=== PATIENT | female | born 1950 | race Caucasian/White ===

== ENCOUNTER → 2021-06-10 | Outpatient (CLI) | payer MEDICARE, OTHER ==
--- NOTE | 2021-06-10 14:31 | Diagnostic Imaging Report ---
INDICATION: Preop total knee replacement. COMPARISON: None. FINDINGS: Frontal and lateral views of the chest demonstrate normal heart size and pulmonary vascularity. The lungs are clear. There are no signs of infiltrate, pleural effusions or pneumothoraces. The visualized osseous structures show no acute abnormalities. IMPRESSION: 1. No acute process. No signs of infiltrates, effusions or pneumothoraces. Dictated by: Dictated on workstation # [id number]
== END ==
LOC: CARD 13:30
PROVIDERS: ATTEND Registered Nurse
DX: Z01.810 Encounter for preprocedural cardiovascular examination (principal); Z01.811 Encounter for preprocedural respiratory examination; Z96.651 Presence of right artificial knee joint; M25.561 Pain in right knee
CPT/HCPCS: 71046; 93005

== ENCOUNTER → 2021-07-04 | Outpatient (CLI) | payer MEDICARE, OTHER ==
--- NOTE | 2021-07-04 13:21 | Diagnostic Imaging Report ---
PROCEDURE: CT right lower extremity without contrast. TECHNIQUE: Axially acquired CT was obtained through the right lower extremity without intravenous contrast. Coronal and sagittal reformations were also performed. Auto Exposure Controls were utilized during the CT exam to meet ALARA standards for radiation dose reduction. INDICATION: Right knee pain. COMPARISON: None FINDINGS: Sagittal and coronal reformats were not obtained, but there is severe endstage degenerative change in the medial and lateral compartments of the knee, with articular surface remodeling in the lateral compartment, seen on the field placement director image. There is severe degenerative change in the patellofemoral compartment and there is a large knee joint effusion. There is mild generalized muscular atrophy. There are mild degenerative changes in the right hip. No acute osseous abnormality is seen in the right hip or right ankle. IMPRESSION: 1. Severe tricompartmental degenerative changes in the right knee. 2. Large right knee joint effusion. Dictated by: Dictated on workstation # [id number]
== END ==
LOC: RAD 11:15
PROVIDERS: ATTEND Orthopaedic Surgery
DX: M17.11 Unilateral primary osteoarthritis, right knee (principal); Z96.651 Presence of right artificial knee joint
CPT/HCPCS: 73700

== ENCOUNTER 2021-08-04 05:40 | Outpatient (RCR) | payer MEDICARE, OTHER ==
[2021-07-30 15:09] LABS: CLARITY,URINE CLEAR; COLOR,URINE YELLOW; GLUCOSE, URINE (UA) NEGATIVE (NEGATIVE); KETONES,URINE TRACE (NEGATIVE); LEUKOCYTE ESTERASE ,URINE NEGATIVE (NEGATIVE); NITRITE,URINE NEGATIVE (NEGATIVE); PH,URINE 5.5 (5-9); PROTEIN,URINE NEGATIVE (NEGATIVE)
[2021-07-30 15:12] LABS: BASOPHILS # (AUTO) 0.1 10^3/uL (0.0-0.1); BASOPHILS % (AUTO) 1 % (0-10); EOSINOPHILS # (AUTO) 0.1 10^3/uL (0.0-0.3); EOSINOPHILS % (AUTO) 1 % (0-10); HEMATOCRIT 45 % (35-52); HEMOGLOBIN 14.6 g/dL (11.5-16.0); LYMPHOCYTES # (AUTO) 2.2 10^3/uL (1.0-4.0); LYMPHOCYTES % (AUTO) 32 % (12-44); MEAN CORPUSCULAR HEMOGLOBIN 33 pg (25-34); MEAN CORPUSCULAR HGB CONC 32 g/dL (32-36); MEAN CORPUSCULAR VOLUME 101 fL (80-99); MONOCYTES # (AUTO) 0.7 10^3/uL (0.0-1.0); MONOCYTES % (AUTO) 10 % (0-12); NEUTROPHILS # (AUTO) 3.8 10^3/uL (1.8-7.8); NEUTROPHILS % (AUTO) 56 % (42-75); PLATELET COUNT 228 10^3/uL (130-400); WHITE BLOOD COUNT 6.7 10^3/uL (4.3-11.0)
[2021-07-30 15:18] LABS: INR 0.9 (0.8-1.4); PROTHROMBIN TIME PATIENT 12.8 SEC (12.2-14.7)
[2021-07-30 15:21] LABS: POTASSIUM 4.3 MMOL/L (3.6-5.0)
[2021-07-30 15:22] LABS: CALCIUM 9.3 MG/DL (8.5-10.1)
[2021-07-30 15:23] LABS: TOTAL PROTEIN 6.8 GM/DL (6.4-8.2)
[2021-07-30 15:25] LABS: BILIRUBIN,TOTAL 0.3 MG/DL (0.1-1.0)
[2021-07-30 15:27] LABS: CREATININE SERUM 0.89 MG/DL (0.60-1.30)
[2021-07-30 15:30] LABS: ERYTHROCYTE SEDIMENTATION RATE 1 MM/HR (0-30)
[2021-07-30 15:35] LABS: AMORPHOUS SEDIMENT,UR MOD AMOR URATES /LPF; BACTERIA,URINE NEGATIVE /HPF; BILIRUBIN,URINE NEGATIVE (NEGATIVE); RBC,URINE 0-2 /HPF; WBC,URINE 0-2 /HPF
[~2021-08-04] VITALS: Ht 170.2 cm; Wt 78.4 kg
[~2021-08-04 05:40] MED LIST: ALLO100T PO; ALPR0.5T7 PO; BACL20TA PO; BISO-2 PO; DIVA-74 PO; GABA300C PO; LEVO125C4 PO; MELO15TA39 PO; NF-ESOM40C PO; ONDN4T PO; SIMV20TA26 PO; SUMA100T3 PO; TRAM50TA3 PO; TRZ50T PO
== END 2021-08-04 12:49 | disposition home or self-care (01) ==
LOC: PREOP 05:40
PROVIDERS: ATTEND Orthopaedic Surgery
DX: Z01.812 Encounter for preprocedural laboratory examination (principal); M17.11 Unilateral primary osteoarthritis, right knee; R53.83 Other fatigue; Z11.2 Encounter for screening for other bacterial diseases
CPT/HCPCS: 36415; 80053; 81000; 85025; 85610; 85652; 86850; 86900; 86901; 87081

== ENCOUNTER → 2022-11-03 | Outpatient (CLI) | payer MEDICARE, OTHER ==
[2022-11-03 09:40] LABS: BASOPHILS % (AUTO) 0 % (0-10); EOSINOPHILS # (AUTO) 0.1 10^3/uL (0.0-0.3); EOSINOPHILS % (AUTO) 1 % (0-10); HEMATOCRIT 43 % (35-52); HEMOGLOBIN 13.8 g/dL (11.5-16.0); LYMPHOCYTES % (AUTO) 19 % (12-44); MEAN CORPUSCULAR HEMOGLOBIN 32 pg (25-34); MEAN CORPUSCULAR HGB CONC 32 g/dL (32-36); MEAN CORPUSCULAR VOLUME 99 fL (80-99); MEAN PLATELET VOLUME 9.8 fL (9.0-12.2); MONOCYTES # (AUTO) 0.6 10^3/uL (0.0-1.0); MONOCYTES % (AUTO) 11 % (0-12); NEUTROPHILS # (AUTO) 3.5 10^3/uL (1.8-7.8); NEUTROPHILS % (AUTO) 68 % (42-75); PLATELET COUNT 238 10^3/uL (130-400); WHITE BLOOD COUNT 5.1 10^3/uL (4.3-11.0)
[2022-11-03 09:48] LABS: CALCIUM 9.5 MG/DL (8.5-10.1); CREATININE SERUM 0.8 MG/DL (0.60-1.30); POTASSIUM 4.2 MMOL/L (3.6-5.0)
--- NOTE | 2022-11-03 13:02 | Diagnostic Imaging Report ---
INDICATION: Preoperative evaluation. TECHNIQUE: Two view chest 9:42 AM CORRELATION STUDY: 06/10/2021 FINDINGS: The heart size, mediastinal configuration and pulmonary vasculature are within normal limits. The lungs are clear with no consolidating infiltrate. There is no significant pleural effusion or pneumothorax. Visualized osseous structures are unremarkable. IMPRESSION: 1. Negative for acute abnormality of the chest. Dictated by: Dictated on workstation # [id number]
== END ==
LOC: CARD 08:47
PROVIDERS: ATTEND Registered Nurse
DX: Z01.818 Encounter for other preprocedural examination (principal); M25.561 Pain in right knee
CPT/HCPCS: 36415; 71046; 80048; 85025; 93005

== ENCOUNTER 2022-12-29 05:30 | Outpatient (CLI) | payer MEDICARE, MEDICAID ==
[~2022-12-29] VITALS: Ht 170.2 cm; Wt 93.2 kg
[2022-12-29] MEDS ORDERED: GUAI600T43 PO (09:29)
[2022-12-29] MEDS ORDERED: BACL10TA PO (09:29)
[2022-12-29] MEDS ORDERED: BISO-1 PO (09:29)
[2022-12-29] MEDS ORDERED: BISA-65 PO (09:29)
[2022-12-29] MEDS ORDERED: LEVO112C4 PO (09:29)
[2022-12-29] MEDS ORDERED: DULO60CA59 PO (09:29)
[2022-12-29 09:30] VITALS: BP 121/68
--- NOTE | 2022-12-29 09:47 | Physical Therapy Pre-Op Eval ---
PT Pre-Surgical Assessment Type of Surgery Type of Surgery: right OA Prior Level of Function Current Living Status: Spouse Locomotion (Upon Admit): Independent PLOF DME: None Subjective Home: Single Level Current Living Status: Spouse Entry Into Home: Ramp Motor Control Motor Control: Motor Control WNL ROM ROM: WFL, except focal deficit Strength Strength: WFL Transfers Transfers (B, C, W/C) (FIM): 6 Gait Gait (FIM): 6 Gait Distance (FIM): 6 Distance: 150' Gait Assistive Device: FWW Right Lower Extremity: Right Weight Bearing/Tolerated Left Lower Extremity: Left Weight Bearing/Tolerated Treatment Rendered Treatment: Patient instructed in assistive device, supported ambulation. Patient instructed in and given written program of ROM and strengthening exercises to be preformed post-op. Patient instructed in movement precautions where applicable. Patient demonstrates understandings of post-operative therapy protocol including gait pattern and exercise program. Pre-operative instruction completed; await physical therapy orders after surgery. Treatment Goal Met: Yes Assessment Goals Acheived: I Ambulation w/ FWW, Understands P-op Precaut, I Post-op Exercises Charges/GCodes Time In: 927 Time Out: 937 Total Billed Treatment Time: 10 Total Billed Treatment 1 visit EVLowC 10 min HARPER COTE PT Dec 29, 2022 09:47
[2022-12-29 10:21] LABS: BILIRUBIN,URINE NEGATIVE (NEGATIVE); CLARITY,URINE CLEAR; COLOR,URINE YELLOW; GLUCOSE, URINE (UA) NEGATIVE (NEGATIVE); KETONES,URINE NEGATIVE (NEGATIVE); LEUKOCYTE ESTERASE ,URINE TRACE (NEGATIVE); NITRITE,URINE NEGATIVE (NEGATIVE); PROTEIN,URINE NEGATIVE (NEGATIVE)
[2022-12-29 10:23] LABS: BASOPHILS # (AUTO) 0.1 10^3/uL (0.0-0.1); BASOPHILS % (AUTO) 1 % (0-10); EOSINOPHILS # (AUTO) 0.1 10^3/uL (0.0-0.3); EOSINOPHILS % (AUTO) 2 % (0-10); HEMATOCRIT 41 % (35-52); HEMOGLOBIN 12.9 g/dL (11.5-16.0); LYMPHOCYTES # (AUTO) 1.3 10^3/uL (1.0-4.0); LYMPHOCYTES % (AUTO) 21 % (12-44); MEAN CORPUSCULAR HEMOGLOBIN 31 pg (25-34); MEAN CORPUSCULAR HGB CONC 32 g/dL (32-36); MEAN CORPUSCULAR VOLUME 98 fL (80-99); MONOCYTES # (AUTO) 0.6 10^3/uL (0.0-1.0); MONOCYTES % (AUTO) 9 % (0-12); NEUTROPHILS # (AUTO) 4.4 10^3/uL (1.8-7.8); NEUTROPHILS % (AUTO) 67 % (42-75); PLATELET COUNT 232 10^3/uL (130-400); WHITE BLOOD COUNT 6.5 10^3/uL (4.3-11.0)
[2022-12-29 10:31] LABS: INR 0.9 (0.8-1.4); PROTHROMBIN TIME PATIENT 11.9 SEC (12.2-14.7)
[2022-12-29 10:35] LABS: BACTERIA,URINE FEW /HPF; RBC,URINE 0-2 /HPF
[2022-12-29 10:36] LABS: WBC,URINE 0-2 /HPF
[2022-12-29 10:45] LABS: ERYTHROCYTE SEDIMENTATION RATE 7 MM/HR (0-30)
[2022-12-29 10:49] LABS: ALBUMIN 3.8 GM/DL (3.2-4.5); BILIRUBIN,TOTAL 0.3 MG/DL (0.1-1.0); CALCIUM 9.1 MG/DL (8.5-10.1); CREATININE SERUM 0.8 MG/DL (0.60-1.30); POTASSIUM 4.4 MMOL/L (3.6-5.0); TOTAL PROTEIN 6.2 GM/DL (6.4-8.2)
== END 2022-12-29 12:40 ==
LOC: PREOP 05:30
PROVIDERS: ATTEND Orthopaedic Surgery
DX: Z01.818 Encounter for other preprocedural examination (principal); M17.11 Unilateral primary osteoarthritis, right knee
CPT/HCPCS: 36415; 80053; 81000; 82308; 85025; 85610; 85652; 86850; 86900; 86901; 87081

== ENCOUNTER 2023-01-06 07:22 | Day surgery (SDC) | payer MEDICARE, MEDICAID ==
--- NOTE | 2022-12-29 08:18 | HISTORY AND PHYSICAL ---
This will be for inpatient admission on 01/06/2023 for right total knee arthroplasty. The patient will require regular inpatient admission due to pain, physical therapy needs and gait abnormalities. HISTORY: The patient is a 72-year-old female with longstanding progressive right knee pain. She has undergone treatment with multiple injections as well as arthroscopy. She has tried bracing without relief. Radiographs reveal severe lateral and patellofemoral arthrosis with valgus deformity. Due to functional impairment and failure to improve with conservative measures, the patient elected to proceed with surgical intervention. REVIEW OF SYSTEMS: No chest pain, no shortness of breath. No dysuria. PAST MEDICAL HISTORY: Hypertension, hypercholesterolemia, stroke, hypothyroidism and migraines. PAST SURGICAL HISTORY: Brain, cholecystectomy, and right knee. FAMILY HISTORY: Alzheimer's disease. PRIMARY CARE PROVIDER: Jennifer Davison. MEDICATIONS: Trazodone, meloxicam, baclofen, levothyroxine, bisoprolol, hydrochlorothiazide, simvastatin, allopurinol, Zofran, alprazolam, sumatriptan, divalproex. ALLERGIES: PENICILLIN. SOCIAL HISTORY: The patient denies alcohol use. She is a former tobacco user. PHYSICAL EXAMINATION: GENERAL: The patient is well-developed, well-nourished, in no acute distress. HEENT: Normocephalic, atraumatic. Pupils are equal, round and reactive to light. Oropharynx is clear. NECK: Supple, with no lymphadenopathy. LUNGS: Clear to auscultation bilaterally. HEART: Regular rate and rhythm. ABDOMEN: Soft, nontender, nondistended. EXTREMITIES: The right knee demonstrates valgus alignment. She is tender along her lateral joint line. She has pain laterally with Efraín's. Range of motion is 0/5/110. IMPRESSION: Severe right knee osteoarthritis. PLAN: Right total knee arthroplasty. The risks, benefits, options, ramifications and recovery have been discussed at length with the patient. She understands and wishes to proceed. Job ID: [id number] DocumentID: [id number] Dictated Date: 12/11/2022 10:56:20 Metal Hanger Date: 12/11/2022 12:37:00 Dictated By: ABIMAEL PEÑA MD
[2023-01-06] VITALS (10 sets, daily range): BP systolic 119–159; BP diastolic 60–84
[~2023-01-06] VITALS: Ht 170 cm; Wt 93.2 kg
[~2023-01-06 07:22] MED LIST changes: +BACL10TA PO; +BISA-65 PO; +BISO-1 PO; +DULO60CA59 PO; +GUAI600T43 PO; +LEVO112C4 PO
[2023-01-06] MEDS ORDERED: NALOXONE 0.4 MG/ML 1 ML (NARCAN) VIAL IV PRN (07:30)
[2023-01-06] MEDS ORDERED: morphine INJ 4 MG/ML 1 ML (VIAL/SYRINGE) IVP PRN (07:30)
[2023-01-06] MEDS ORDERED: diphenhydrAMINE 50 MG/ML INJ (BENADRYL) IVP PRN (07:30)
[2023-01-06] MEDS ORDERED: ONDANSETRON 4 MG/2 ML (SDV) Z0FRAN IVP PRN ×2 (07:30→11:45)
[2023-01-06] MEDS ORDERED: INTRA-ARTICULAR IU ONE ×5 (07:45)
[2023-01-06] MEDS ORDERED: CEFUROXIME 1.5 GM/NS 50 ML IVPB IV ONE ×2 (07:45)
--- NOTE | 2023-01-06 07:47 | Progress Note-Post Operative ---
Post-Operative Progess Note Surgeon (s)/Picc Nurse (s) Surgeon ABIMAEL PEÑA MD Picc Nurse: Ollie Roche Pre-Operative Diagnosis right knee primary osteoarthritis Post-Operative Diagnosis right knee primary osteoarthritis Procedure & Operative Findings Date of Procedure 01/06/23 Procedure Performed/Findings right total knee arthroplasty Anesthesia Type spinal Estimated Blood Loss Estimated blood loss (mL): minimal Specimens/Packing Specimens Removed none Packing: none ABIMAEL PEÑA MD Jan 06, 2023 07:47
--- NOTE | 2023-01-06 07:47 | Progress Note-Pre Operative ---
Pre-Operative Progress Note Date of Available H&P: Dec 29, 2022 Date H&P Reviewed: Jan 06, 2023 Time H&P Reviewed: 07:46 Changes from last HP none Pre-Operative Diagnosis: right knee primary osteoarthritis ABIMAEL PEÑA MD Jan 06, 2023 07:46
--- NOTE | 2023-01-06 07:50 | D/C HH Face to Face Order ---
D/C Face to Face Orders Reconcile Patient Problems Problems Reviewed?: Yes Instructions for Patient [facility], Patient Instructions/FollowUp: three weeks Physician to follow Patient: three weeks Discharge Diet for Home: Regular Diet Patient Data-Allergies,Ht & Wt Patient Allergies: Coded Allergies: Penicillins (Verified Allergy, Mild, Rash, 12/29/22) Home Health Need/Face to Face Date of Face to Face: Jan 06, 2023 Clinical Findings: Muscle weakness, Pain with ambulation, Unsteady gait I have seen Pt tijg-bc-idxh: Yes Discharged To: Home Diagnosis/Conditions: right total knee arthroplasty Patient is Homebound due to: Iván fall risk due to instabilty, Muscle weakness, Pain w/ambulation Homebound Status Due to the above stated illness, injury or surgical procedure (medical condition or diagnosis) and associated clinical findings, the patient is homebound because of his/her inability to leave home except with aid of a supportive device and/or person AND leaving the home requires a considerable and taxing effort or is medically contraindicated. Pt req the following assistanc: [facility] Health Nursing Orders Home Health Services Order: Physical Therapy-Evaluate & Treat DC right knee carmita and apply steri strips 01/20/23 Therapy Orders Therapy Orders: Physical Therapy, PT to assess for OT Therapy Specific Orders: Eval assistive deivces, Teach enviro modifications/safety, Gait training, Increase strength/endurance, Provider maintenance therapy, Restore ROM Certify Stmt I certify that this patient is under my care and that I, a nurse practitioner or a physician; a appeals assistant working with me, had a face to face encounter that - meets the physician face to face encounter requirements with this patient as dated. ABIMAEL PEÑA MD Jan 06, 2023 07:50
[2023-01-06] MEDS: LACTATED RINGERS 1,000 ML IV PRN ×2 (07:54→10:51)
[2023-01-06] MEDS: SENNA W/DOCUSATE (SENOKOT S) TABLET PO SCH ×2 (09:00→20:23)
[2023-01-06] MEDS ORDERED: BUPIVACAINE 0.5% 30 ML (SENSORCAINE) VIAL ONE (09:52)
[2023-01-06] MEDS ORDERED: TRANEXAMIC ACID 100 MG/ML 10 ML INJECTION ONE (09:52)
[2023-01-06] MEDS ORDERED: PROPOFOL INJECTION 50 ML IV ONE (11:00)
--- NOTE | 2023-01-06 11:41 | Diagnostic Imaging Report ---
EXAMINATION: Right knee radiograph TECHNIQUE: AP and lateral views of the right knee obtained. HISTORY: Postop right knee COMPARISON: None available. FINDINGS: Well aligned right knee arthroplasty. Subcutaneous air and edema within the soft tissues. No unexpected radiopaque foreign body. Midline skin carmita. IMPRESSION: Well aligned right knee arthroplasty. Dictated by: Dictated on workstation # [id number]
--- NOTE | 2023-01-06 11:45 | Progress Note ---
Standard Progress Note Progress Notes/Assess & Plan Date Seen by a Provider: Jan 06, 2023 Time Seen by a Provider: 11:34 Progress/Assessment & Plan post op check no complaints spinal in effect radiographs--HW well positioned without fracture RLE--2 plus DP pulse with brisk cap refill s/p RTKA mobilize as able ABIMAEL PEÑA MD Jan 06, 2023 11:45
[2023-01-06] MEDS: NS IV 1000 ML 1,000 ML IV SCH ×2 (13:34→20:23)
[2023-01-06] MEDS ORDERED: guaiFENesin (MUCINEX) 600 MG TAB PO PRN (14:00)
[2023-01-06] MEDS ORDERED: NON-FORMULARY MEDICATION 1 EA EA (Sumatriptan Succinate 100 MG) PO PRN (14:00)
[2023-01-06] MEDS ORDERED: PATIENT MAY USE OWN MEDS, ALL MC SCH (14:00)
[2023-01-06] MEDS ORDERED: BISACODYL 5 MG (DULCOLAX) TABLET PO PRN (14:00)
[2023-01-06] MEDS ORDERED: ONDANSETRON 4 MG (ZOFRAN) ORAL DISSOLVE TAB PO PRN (14:15)
[2023-01-06] MEDS ORDERED: SUMAtriptan 50 MG (IMITREX) TAB PO PRN (14:45)
--- NOTE | 2023-01-06 15:31 | Physical Therapy Evaluation ---
PT Evaluation-General Medical Diagnosis Admission Date 01/06/23 Medical Diagnosis: Right TKA Onset Date: Jan 06, 2023 Therapy Diagnosis Therapy Diagnosis: Gait Deficit, strength deficit Precautions Precautions/Isolations: Fall Prevention, Standard Precautions Weight Bear Status Right Lower Extremity: Right Weight Bearing/Tolerated Left Lower Extremity: Left Full Weight Bearing Referral Physician: Dr. Schumacher Reason for Referral: Evaluation/Treatment Medical History Reviewed History: Yes Social History Home: Single Level Current Living Status: Spouse Entry Into Home: Ramp PT Steps Into Home: 0 Prior Prior Level of Function SCALE: Activities may be completed with or without assistive devices. 5-Rbjmakvdth-fgnqquc completes the activity by him/herself with no assistance from a helper. 5-Set-up or Clean-up Assistance-helper sets up or cleans up; patient completes activity. Manor assists only prior to or following the activity. 4-Supervision or Touching Assistance-helper provides verbal cues and/or touching/steadying and/or contact guard assistance as patient completes ac tivity. Assistance may be provided throughout the activity or intermittently. 3-Partial/Moderate Assistance-helper does LESS THAN HALF the effort. Manor lifts, holds or supports trunk or limbs, but provides less than half the effort. 2-Substantial/Maximal Assistance-helper does MORE THAN HALF the effort. Manor lifts or holds trunk or limbs and provides more than half the effort. 5-Uhfvjpdrj-cewqtn does ALL the effort. Patient does none of the effort to complete the activity. Or, the assistance of 2 or more helpers is required for the patient to complete the activity. If activity was not attempted, code reason: 7-Patient Refused. 9-Not Applicable-not attempted and the patient did not perform the activity before the current illness, exacerbation or injury. 10-Not Attempted due to Environmental Limitations-(lack of equipment, weather restraints, etc.). 88-Not Attempted due to Medical Conditions or Safety Concerns. Bed Mobility: 6 Transfers (B,C,W/C): 6 Gait: 6 Indoor Mobility (Ambulation): Independent Stairs: Not Applicalbe Prior Devices Use: None Needs FWW for home PT Evaluation-Current Subjective Patient lying supine in bed upon PT arrival, agreeable to treatment. Patient rates pain at 0/10 currently. Objective Patient Orientation: Person, Place, Time, Situation Attachments: Polar Pack, IV ROM/Strength ROM Lower Extremities Right knee flexion 95 degrees, extension 10 degrees from neutral; All other Right LE motions and all left LE motions WFLs Sensory Vision: Functional Hearing: Functional Sensation Right Lower Extremit: Intact Sensation Left Lower Extremity: Intact Transfers Roll Left to Right (QC): 3 Sit to Lying (QC): 3 Lying to Sitting/Side of Bed(Q: 3 Sit to Stand (QC): 2 Chair/Bpl-yi-Thkjr Xfer(QC): 2 Gait Does the Patient Walk?: No and Walking Goal IS indicated Mode of Locomotion: Walk Anticipated Mode of Locomotion: Walk Distance: 3' Gait Assistive Device: FWW Balance Sitting Static: Good Sitting Dynamic: Good Standing Static: Fair Standing Dynamic: Poor Assessment/Needs Patient performs all bed mobility with min and all transfers with mod to max A. Patient attempts ambulation on three occasions, however each time she steps on the right LE, she falls back into the bed. Patient was returned to bed and transferred to other side of the bed, where she was able to slowly take a few steps with max a, with FWW to the chair. Patient in chair post treatment with all needs met, nursing notified, call light in hand. Rehab Potential: Fair Equipment Needs FWW PT Production Engineer Track Goals Long-Term Goals PT Long-Term Goals Time Frame: Feb 13, 2023 Roll Left & Right (QC): 6 Sit to Lying (QC): 6 Lying-Sitting on Side/Bed(QC): 6 Sit to Stand (QC): 6 Chair/Ewi-aj-Plnjc Xfer(QC): 6 Toilet Transfer (QC): 6 Does the Patient Walk: Yes Walk 10 feet (QC): 6 Walk 50ft with 2 Turns (QC): 4 Walk 150 ft (QC): 4 PT Plan Problem List Problem List: Activity Tolerance, Functional Strength, Safety, Balance, Gait, Transfer, Bed Mobility, ROM Treatment/Plan Treatment Plan: Continue Plan of Care Treatment Plan: Bed Mobility, Education, Functional Activity Heather, Functional Strength, Group Therapy, Gait, Safety, Therapeutic Exercise, Transfers Treatment Duration: Feb 13, 2023 Frequency: 11 times per week Estimated Hrs Per Day: .25 hour per day Patient and/or Family Agrees t: Yes Safety Risks/Education Patient Education: Gait Training, Transfer Techniques Teaching Recipient: Patient Teaching Methods: Demonstration, Discussion Response to Teaching: Reinforcement Needed Time Time In: 1344 Time Out: 1404 DATE: Jan 06, 2023 Total Billed Treatment Time: 20 Total Billed Treatment Visit, FAVIO OSEGUERA PT Jan 06, 2023 15:31
[2023-01-06] MEDS: oxyCODONE/APAP 5/325MG (PERCOCET 5) TABLET PO PRN (16:31)
[2023-01-06] MEDS: CEFUROXIME INJECTION 750 MG in NS (IVPB) 50 ML IV SCH (16:31)
[2023-01-06] MEDS: ALPRAZolam 0.5 MG (XANAX) TAB PO PRN (16:40)
--- NOTE | 2023-01-06 18:44 | OPERATIVE REPORT ---
DATE OF SERVICE: 01/06/2023 PREOPERATIVE DIAGNOSIS: Right knee primary osteoarthritis. POSTOPERATIVE DIAGNOSIS: Right knee primary osteoarthritis. PROCEDURE: Right total knee arthroplasty. SURGEON: Iker Peña MD. STORE ADMINISTRATOR: FILEMON Bravo, who assisted throughout the procedure and closed the incision. ANESTHESIA: Spinal by Yuko Woodward CRNA. TOURNIQUET TIME: Approximately 55 minutes at 300 mmHg. ESTIMATED BLOOD LOSS: Minimal. DRAINS: None. COMPLICATIONS: None. POSTOPERATIVE PLAN: Routine protocol. The patient was transported to the recovery room awake and in stable condition. MATERIALS: MicroPort cemented size 5 femur, cemented size 5 tibia with 10 mm insert and cemented size 32 patellar button. STATEMENT OF MEDICAL NECESSITY: The patient is a 72-year-old female, with longstanding right knee pain. Radiographs revealed severe lateral and patellofemoral arthrosis. She had undergone treatment with injections, anti-inflammatories, bracing and rest without relief. Due to functional impairment and failure to improve with conservative measures, the patient elected to proceed with surgical intervention. DESCRIPTION OF PROCEDURE: After risks and benefits of the procedure were discussed and questions were answered and informed consent was signed and placed on the chart, the operative site was confirmed in the preoperative holding area, initialed by the surgeon. The patient was then transported to the operating room and after adequate levels of spinal anesthetic were obtained, timeout was called, confirming the operative site. The right lower extremity was prepped and draped in the usual sterile fashion with the leg elevated and the knee flexed and tourniquet inflated to 300 mmHg. Standard anterior approach was utilized. Hemostasis was obtained with cautery. A medial parapatellar arthrotomy was performed, leaving 1 cm cuff on the patella for later reattachment. Portion of the fat pad was resected. Subperiosteal release was performed in the proximal medial tibia, being careful to stay on the bony surface. The ACL was resected. The custom cutting block was placed and pinned into position. The distal cut was made. The previously placed drill holes for the 5 cutting block was placed. This was positioned and cuts were made from posterior to anterior. Subperiosteal release was then carefully performed on the posterior distal femur, being careful to stay on the bony surface. The custom tibial block was then placed and the tibial cut was made. The drop clifton transected the intermalleolar axis prior to the cut. The baseplate was placed. The drop clifton again transected the intermalleolar axis and was then pinned into position. This was prepared with the drill and keel punch. The trials were then inserted. The trochlear cut was made on the femur. The patella was then prepared by resecting 10 mm off the undersurface. The peg guide was placed and peg holes were drilled. The knee was taken through range of motion. Full extension was easily obtained under 20 degrees of flexion with gravity easily obtained. The patella tracked well. There was no anterior/posterior or medial/lateral laxity in flexion or extension. The trials were removed. The joint was irrigated with pulse lavage. Periarticular block was placed in the posterior capsule, medial and lateral retinaculum, extensor mechanism and subcutaneous tissues. The bone ends were irrigated and dried. The tibial baseplate was cemented into position. Excessive cement was removed. The superior surface was irrigated and dried and the polyethylene insert was placed. The distal femur was irrigated and dried and the femoral prosthesis was cemented into position. Excessive cement was removed. The knee was brought out in full extension until cement had cured. The undersurface of the patella was irrigated and dried. The patellar button was cemented into position. Excessive cement was removed. Once the cement had cured, after leaving the knee in full extension, knee was taken through range of motion. Full extension was easily obtained under 20 degrees of flexion with gravity easily obtained. There was no anterior/posterior or medial/lateral laxity in flexion or extension. The joint was further irrigated with pulse lavage. The arthrotomy was closed with #2 Tevde[place] in drhacq-jx-rqewe interrupted fashion. Knee was flexed. Repair was stable. The patella tracked well. The subcutaneous tissues were irrigated using total of 6 liters throughout the procedure. A 0 Vicryl was used for the deep subcutaneous tissue, 2-0 Vicryl for the superficial subcutaneous tissue, carmita used on the skin. A soft dressing was applied. The tourniquet was deflated. The patient was transported to the recovery room awake and in stable condition. Job ID: [id number] DocumentID: [id number] Dictated Date: 01/06/2023 11:08:06 Miller Helper Date: 01/06/2023 18:42:00 Dictated By: IKER PEÑA MD
[2023-01-06] MEDS: BACLOFEN 10 MG (LIORESAL) TAB PO SCH (20:21)
[2023-01-06] MEDS: DIVALPROEX 250 MG DELAYED RELEASE (DEPAKOTE) TAB PO SCH (20:22)
[2023-01-06] MEDS: AtorvaSTATin TABLET 10 MG TABLET PO SCH (20:22)
[2023-01-06] MEDS: traZODone 50 MG (DESYREL) TAB PO SCH (20:22)
[2023-01-06] MEDS: GABAPENTIN 300 MG (NEURONTIN) CAP PO SCH (20:22)
[2023-01-06] MEDS: DULoxetine 30 MG (CYMBALTA) CAP PO SCH (20:22)
[2023-01-06] MEDS ORDERED: NON-FORMULARY MEDICATION 1 EA EA (Simvastatin 20 MG) PO SCH (21:00)
[2023-01-07] VITALS: BP 139/72
[2023-01-07] MEDS: CEFUROXIME INJECTION 750 MG in NS (IVPB) 50 ML IV SCH (00:46)
[2023-01-07] MEDS: ALPRAZolam 0.5 MG (XANAX) TAB PO PRN ×3 (00:46→19:49)
[2023-01-07 04:00] VITALS: BP 137/80
[2023-01-07 05:10] LABS: HEMOGLOBIN 10.6 g/dL (11.5-16.0)
[2023-01-07] MEDS: MULTIVIT W/MINERALS TAB (THERAGRAN M) PO SCH (06:10)
[2023-01-07] MEDS: oxyCODONE/APAP 5/325MG (PERCOCET 5) TABLET PO PRN ×4 (06:16→19:49)
[2023-01-07 07:39] VITALS: BP 150/98
--- NOTE | 2023-01-07 07:50 | Consultation - Hospitalist ---
HPI History of Present Illness: HPI/Chief Complaint Sae Hurst is a 72 year old female with PMH HTN, HLD, hypothyroidism, migraines, history of stroke, obesity, who was admitted after a scheduled total knee arthroplasty. She was seen and evaluated after her surgery. She is having some pain in her knee. She has just walked the halls with therapy. She did not sleep well. She denies nausea and vomiting. She denies chest pain and shortness of breath. She has no other complaints. Source: patient Exam Limitations: no limitations Date Seen 01/07/23 Attending Physician No,Local Physician PCP Admitting Physician: Attending Physician: Iker Schumacher MD Referring Physician Date of Admission Home Medications & Allergies Home Medications Reviewed patient Home Medication Reconciliation performed by pharmacy medication reconciliations oil and gas field technician and/or nursing. Patients Allergies have been reviewed. Allergies Allergies Coded Allergies Penicillins (Verified Allergy, Mild, Rash, 12/29/22) Past Hmxheeq-Adslct-Ietecx Hx Patient Social History Smoking Status: Former Smoker Immunizations Up To Date Date of Influenza Vaccine: Apr 20, 2022 First/Initial COVID19 Vaccinat: 09/14/20 Second COVID19 Vaccination Juarez: 10/14/20 Hepatitis A: No Hepatitis B: No Date of Pneumonia Vaccine: Jul 22, 2020 Seasonal Allergies Seasonal Allergies: Yes Current Status Is interpretation needed?: No Past Medical History Surgeries: Appendectomy, Gallbladder Currently Using CPAP: No Currently Using BIPAP: No High Cholesterol Stroke Sexually Transmitted Disease: No HIV/AIDS: No Gall Bladder Disease Arthritis Hypothyroidsim Cataract Loss of Vision: Denies Hearing Impairment: Denies Skin What Type of Treatment Did You: Surgical Intervention Psoriasis Blood Disorders: No Adverse Reaction/Blood Tranf: No Family Medical History No Pertinent Family Hx Review of Systems Constitutional: no symptoms reported Respiratory: no symptoms reported Cardiovascular: no symptoms reported Gastrointestinal: no symptoms reported Physical Exam Physical Exam Vital Signs Vital Signs - First Documented 01/06/23 07:00 Temp 36.4 Pulse 69 Resp 18 B/P (MAP) 159/84 (109) Pulse Ox 95 Capillary Refill : Less Than 3 Seconds Height, Weight, BMI Height: '" Weight: lbs. oz. kg; 32.24 BMI Method: General Appearance: No Apparent Distress, Obese HEENT: PERRL/EOMI, Pharynx Normal Neck: Normal Inspection, Supple Respiratory: Lungs Clear, Normal Breath Sounds, No Respiratory Distress Cardiovascular: Regular Rate, Rhythm, No Edema, No Murmur Gastrointestinal: Normal Bowel Sounds, Non Tender, Soft Extremity: No Inflammation; Pedal Edema Neurologic/Psychiatric: Alert, No Motor/Sensory Deficits Skin: Normal Color, Warm/Dry Results Results/Procedures Labs Laboratory Tests 01/07/23 04:53 Patient resulted labs reviewed. Imaging: Reviewed Imaging Report Assessment/Plan Assessment and Plan Assess & Plan/Chief Complaint s/p TKA OA Ortho primary Pain regimen Bowel regimen Incentive spirometry PT/OT HTN HLD Hypothyroidism Migraines History of stroke Obesity Continue home meds as able DVT prophylaxis: Lovenox Diagnosis/Problems Diagnosis/Problems (1) Total knee replacement status Status: Acute Qualifiers: Laterality: right Qualified Codes: Z96.651 - Presence of right artificial knee joint (2) Osteoarthritis of right knee Status: Acute Qualifiers: Osteoarthritis type: primary Qualified Codes: M17.11 - Unilateral primary osteoarthritis, right knee (3) HTN (hypertension) Status: Chronic (4) HLD (hyperlipidemia) Status: Chronic (5) Hypothyroidism Status: Chronic (6) Migraines Status: Chronic (7) History of stroke Status: Chronic (8) Obesity Status: Chronic ALLIE SMALL MD Jan 07, 2023 07:50
--- NOTE | 2023-01-07 07:56 | Progress Note ---
Standard Progress Note Progress Notes/Assess & Plan Date Seen by a Provider: Jan 07, 2023 Time Seen by a Provider: 07:46 Progress/Assessment & Plan post op check no complaints spinal in effect radiographs--HW well positioned without fracture RLE--2 plus DP pulse with brisk cap refill s/p RTKA mobilize as able Final Diagnosis reports painful night. Better this AM Vital Signs Date Time Temp Pulse Resp B/P (MAP) Pulse Ox O2 Delivery O2 Flow Rate FiO2 01/07/23 07:39 37.3 87 18 150/98 (115) 91 Room Air 01/07/23 04:00 37.4 87 16 137/80 (99) 90 Room Air 01/07/23 00:00 37.2 84 18 139/72 (94) 94 Room Air 01/06/23 20:15 Room Air 01/06/23 20:04 36.0 81 20 157/80 (105) 97 Room Air 01/06/23 16:29 37.1 75 18 137/83 (101) 93 Room Air 01/06/23 12:35 36.4 62 19 142/79 (100) 92 Room Air 01/06/23 12:30 98 Room Air 01/06/23 11:55 Nasal Cannula 2.00 01/06/23 11:50 36.6 12 151/68 (95) 95 Nasal Cannula 2.00 01/06/23 11:50 Nasal Cannula 2.00 01/06/23 11:40 14 147/64 (91) Nasal Cannula 2.00 01/06/23 11:35 Room Air 01/06/23 11:30 12 141/82 (101) 94 Room Air 01/06/23 11:20 OxyMask 4 01/06/23 11:20 16 141/60 (87) 96 OxyMask 4 01/06/23 11:10 14 128/76 (93) 95 OxyMask 4 01/06/23 11:05 OxyMask 4 01/06/23 11:05 36.4 12 119/61 (80) 92 Room Air 4 01/06/23 10:06 36.4 69 159/84 I & O 01/07/23 07:00 Intake Total 2375 ml Balance 2375 ml Laboratory Tests Test 01/07/23 04:53 Range/Units Hemoglobin 10.6 L 11.5-16.0 g/dL Hematocrit 34 L 35-52 % RLE--intact DF and PF of toes and ankle sensation intact throughout s/p RTKA PT/OT will likely require one more day due to pain and limited mobility ABIMAEL PEÑA MD Jan 07, 2023 07:56
[2023-01-07] MEDS: PANTOPRAZOLE 40 MG (PROTONIX) TAB PO SCH (08:42)
[2023-01-07] MEDS: ASPIRIN E.C. 81 MG (ECOTRIN) TAB PO SCH (08:43)
[2023-01-07] MEDS: ALLOPURINOL 100 MG (ZYLOPRIM) TAB PO SCH (08:43)
[2023-01-07] MEDS: SENNA W/DOCUSATE (SENOKOT S) TABLET PO SCH ×2 (08:43→19:49)
[2023-01-07] MEDS: LEVOTHYROXINE 112 MCG (LEVOTHROID) TAB PO SCH (08:43)
[2023-01-07] MEDS: BACLOFEN 10 MG (LIORESAL) TAB PO SCH ×3 (08:43→19:49)
[2023-01-07] MEDS: MELOXICAM 7.5 MG (MOBIC) TABLET PO SCH (08:43)
[2023-01-07] MEDS: BISOPROLOL 5 MG TAB (ZEBETA) PO SCH (08:43)
[2023-01-07] MEDS: HydroCHLOROthiazide CAP/TABLET 12.5 MG TAB PO SCH (08:44)
[2023-01-07] MEDS: ENOXAPARIN INJECTION 30 MG/0.3 ML SYR SC SCH ×2 (08:44→19:48)
[2023-01-07] MEDS ORDERED: BISOPROLOL FUMARATE PO SCH (09:00)
[2023-01-07] MEDS: NS IV 1000 ML 1,000 ML IV SCH (09:00)
[2023-01-07] MEDS ORDERED: [UNRECOGNIZED DRUG - OTHER] PO SCH (09:00)
[2023-01-07] MEDS ORDERED: HCTZ PO SCH (09:00)
[2023-01-07] MEDS ORDERED: NON-FORMULARY MEDICATION 1 EA EA (Esomeprazole Magnesium (Nexium) 40 MG) PO SCH (09:00)
--- NOTE | 2023-01-07 10:11 | Anesthesia-Regional Post-Op ---
Regional Patient Condition Mental Status: Alert, Oriented x3 Circulation: Same as Pre-Op Headache: Absent Sensation: Full Recovery Motor Block: Absent Post Op Complications Complications None Follow Up Care/Instructions Patient Instructions None needed. Anesthesia/Patient Condition Patient is doing well, no complaints, stable vital signs, no apparent adverse anesthesia problems. No complications reported per nursing. FRENCH GONSALVES CRNA Jan 07, 2023 10:11
--- NOTE | 2023-01-07 10:53 | Physical Therapy Daily Note ---
PT Daily Note-Current Subjective Patient agrees to PT. Pain Numeric Pain Scale: 8 Location: Right Location Body Site: Knee Pain Description: Acute Section J - Health Conditions 1. Rarely or not at all 2. Occasionally 3. Frequently 4. Almost constantly 8. Unable to answer Pain Effect on Sleep: 2 Pain Interference with Therapy: 2 Pain Interference w/Day-to-Day: 2 Mental Status Patient Orientation: Normal For Age Transfers SCALE: Activities may be completed with or without assistive devices. 4-Syckvgfdpc-pwfsvkt completes the activity by him/herself with no assistance from a helper. 5-Set-up or Clean-up Assistance-helper sets up or cleans up; patient completes activity. [place] assists only prior to or following the activity. 4-Supervision or Touching Assistance-helper provides verbal cues and/or touching/steadying and/or contact guard assistance as patient completes activity. Assistance may be provided throughout the activity or intermittently. 3-Partial/Moderate Assistance-helper does LESS THAN HALF the effort. [place] lifts, holds or supports trunk or limbs, but provides less than half the effort. 2-Substantial/Maximal Assistance-helper does MORE THAN HALF the effort. [place] lifts or holds trunk or limbs and provides more than half the effort. 6-Vqzvqknuk-gakwqo does ALL the effort. Patient does none of the effort to complete the activity. Or, the assistance of 2 or more helpers is required for the patient to complete the activity. If activity was not attempted, code reason: 7-Patient Refused. 9-Not Applicable-not attempted and the patient did not perform the activity before the current illness, exacerbation or injury. 10-Not Attempted due to Environmental Limitations-(lack of equipment, weather restraints, etc.). 88-Not Attempted due to Medical Conditions or Safety Concerns. Sit to Lying (QC): 6 Sit to Stand (QC): 4 Chair/Zcc-ar-Daxmt Xfer(QC): 4 Toilet Transfer (QC): 4 Weight Bearing Right Lower Extremity: Right Weight Bearing/Tolerated Left Lower Extremity: Left Full Weight Bearing Gait Training Distance: 150' Walk 10 feet (QC): 4 Walk 50 ft with 2 Turns(QC): 4 Walk 150 ft (QC): 4 Gait Assistive Device: FWW slow, antalgic gait Exercises Supine Ex: Ankle pumps, Quad Set, Heel Slides, Straight leg raise Supine Reps: 12 Seated Therapy Exercises: Long arc quads Seated Reps: 12 Assessment Patient tolerated treatment well and returned to bed with polar pack in place right knee after session. Patient does self limit by ceasing gait and exercise program. PT educated patient on importance of completing all functional tasks, however, patient ceased session. PT Java Xml Developer Goals Java Xml Developer Goals PT Fpc Goals Time Frame: Feb 13, 2023 Roll Left & Right (QC): 6 Sit to Lying (QC): 6 Lying-Sitting on Side/Bed(QC): 6 Sit to Stand (QC): 6 Chair/Glg-xx-Nptfb Xfer(QC): 6 Toilet Transfer (QC): 6 Does the Patient Walk: Yes Walk 10 feet (QC): 6 Walk 50ft with 2 Turns (QC): 4 Walk 150 ft (QC): 4 PT Plan Treatment/Plan Treatment Plan: Continue Plan of Care Treatment Plan: Bed Mobility, Education, Functional Activity Heather, Functional Strength, Group Therapy, Gait, Safety, Therapeutic Exercise, Transfers Treatment Duration: Feb 13, 2023 Frequency: 11 times per week Estimated Hrs Per Day: .25 hour per day Patient and/or Family Agrees t: Yes Time Time In: 925 Time Out: 948 DATE: Jan 07, 2023 Total Billed Treatment Time: 23 Total Billed Treatment 1 visit EX 12 min GT 11 min HARPER COTE PT Jan 07, 2023 10:53
[2023-01-07 11:34] VITALS: BP 154/87
--- NOTE | 2023-01-07 13:36 | Physical Therapy Daily Note ---
PT Daily Note-Current Subjective Patient agrees to PT. Pain Numeric Pain Scale: 7 Location: Right Location Body Site: Knee Pain Description: Acute Section J - Health Conditions 1. Rarely or not at all 2. Occasionally 3. Frequently 4. Almost constantly 8. Unable to answer Pain Effect on Sleep: 2 Pain Interference with Therapy: 2 Pain Interference w/Day-to-Day: 2 Transfers SCALE: Activities may be completed with or without assistive devices. 8-Jecteidwbn-rsxzegj completes the activity by him/herself with no assistance from a helper. 5-Set-up or Clean-up Assistance-helper sets up or cleans up; patient completes activity. [place] assists only prior to or following the activity. 4-Supervision or Touching Assistance-helper provides verbal cues and/or touching /steadying and/or contact guard assistance as patient completes activity. Assistance may be provided throughout the activity or intermittently. 3-Partial/Moderate Assistance-helper does LESS THAN HALF the effort. [place] lifts, holds or supports trunk or limbs, but provides less than half the effort. 2-Substantial/Maximal Assistance-helper does MORE THAN HALF the effort. [place] lifts or holds trunk or limbs and provides more than half the effort. 0-Sgxvlswbj-rlcwav does ALL the effort. Patient does none of the effort to complete the activity. Or, the assistance of 2 or more helpers is required for the patient to complete the activity. If activity was not attempted, code reason: 7-Patient Refused. 9-Not Applicable-not attempted and the patient did not perform the activity before the current illness, exacerbation or injury. 10-Not Attempted due to Environmental Limitations-(lack of equipment, weather restraints, etc.). 88-Not Attempted due to Medical Conditions or Safety Concerns. Lying to Sitting/Side of Bed(Q: 6 Sit to Stand (QC): 4 Chair/Odg-xt-Ixbvx Xfer(QC): 4 Weight Bearing Right Lower Extremity: Right Weight Bearing/Tolerated Left Lower Extremity: Left Full Weight Bearing Gait Training Distance: 180' Walk 10 feet (QC): 4 Walk 50 ft with 2 Turns(QC): 4 Walk 150 ft (QC): 4 Gait Assistive Device: FWW slow, step to gait sequence Exercises Seated Therapy Exercises: Long arc quads Seated Reps: 15 Assessment Patient up in recliner with family present. Patient progressing with treatment plan. Patient does appear to self limit. Plan dismissal tomorrow after the rapy. PT Paymaster Of Purses Goals Shelter Goals PT Paymaster Of Purses Goals Time Frame: Feb 13, 2023 Roll Left & Right (QC): 6 Sit to Lying (QC): 6 Lying-Sitting on Side/Bed(QC): 6 Sit to Stand (QC): 6 Chair/Vwk-hr-Ukxmy Xfer(QC): 6 Toilet Transfer (QC): 6 Does the Patient Walk: Yes Walk 10 feet (QC): 6 Walk 50ft with 2 Turns (QC): 4 Walk 150 ft (QC): 4 PT Plan Treatment/Plan Treatment Plan: Continue Plan of Care Treatment Plan: Bed Mobility, Education, Functional Activity Heather, Functional Strength, Group Therapy, Gait, Safety, Therapeutic Exercise, Transfers Treatment Duration: Feb 13, 2023 Frequency: 11 times per week Estimated Hrs Per Day: .25 hour per day Patient and/or Family Agrees t: Yes Time Time In: 1301 Time Out: 1317 DATE: Jan 07, 2023 Total Billed Treatment Time: 16 Total Billed Treatment 1 visit FA 16 min HARPER COTE PT Jan 07, 2023 13:36
[2023-01-07 16:00] VITALS: BP 139/64
[2023-01-07 19:12] VITALS: BP 146/70
[2023-01-07] MEDS: DULoxetine 30 MG (CYMBALTA) CAP PO SCH (19:49)
[2023-01-07] MEDS: AtorvaSTATin TABLET 10 MG TABLET PO SCH (19:49)
[2023-01-07] MEDS: traZODone 50 MG (DESYREL) TAB PO SCH (19:49)
[2023-01-07] MEDS: DIVALPROEX 250 MG DELAYED RELEASE (DEPAKOTE) TAB PO SCH (19:49)
[2023-01-07] MEDS: GABAPENTIN 300 MG (NEURONTIN) CAP PO SCH (19:49)
[2023-01-08 00:06] VITALS: BP 142/83
--- NOTE | 2023-01-08 03:11 | DISCHARGE SUMMARY ---
DIAGNOSES: 1. Right knee primary osteoarthritis. 2. Hypertension. 3. Hypercholesterolemia. 4. History of cerebrovascular accident, hypothyroidism and migraines. HISTORY: The patient is a 72-year-old female who underwent a right total knee arthroplasty on the day of admission. Postoperatively, she did well. At time of discharge, her wound was clean and dry. She had no calf tenderness. Negative Homans sign. She was tolerating diet well and tolerating pain with oral pain medication. CONDITION AT DISCHARGE: Good. DISCHARGE DIET: Regular. FOLLOWUP: Is in 3 weeks. Home physical therapy has been arranged. ACTIVITIES: Weightbearing as tolerated with a walker. DISCHARGE MEDICATIONS: Are home medications, Percocet for breakthrough pain, tramadol for pain, gabapentin and Celebrex for 30 days and 1 aspirin per day for 30 days. Job ID: [id number] DocumentID: [id number] Dictated Date: 01/07/2023 08:02:09 Attenuator Date: 01/08/2023 03:10:00 Dictated By: ABIMAEL PEÑA MD
[2023-01-08 03:26] VITALS: BP 140/60
[2023-01-08] MEDS: oxyCODONE/APAP 5/325MG (PERCOCET 5) TABLET PO PRN ×2 (03:38→08:45)
[2023-01-08 06:17] LABS: HEMOGLOBIN 9.9 g/dL (11.5-16.0)
[2023-01-08] MEDS: MULTIVIT W/MINERALS TAB (THERAGRAN M) PO SCH (06:27)
--- NOTE | 2023-01-08 07:00 | Progress Note ---
Standard Progress Note Progress Notes/Assess & Plan Date Seen by a Provider: Jan 08, 2023 Time Seen by a Provider: 06:47 Progress/Assessment & Plan post op check no complaints spinal in effect radiographs--HW well positioned without fracture RLE--2 plus DP pulse with brisk cap refill s/p RTKA mobilize as able Final Diagnosis no complaints Laboratory Tests Test 01/08/23 06:01 Range/Units Hemoglobin 9.9 L 11.5-16.0 g/dL Hematocrit 32 L 35-52 % Vital Signs Date Time Temp Pulse Resp B/P (MAP) Pulse Ox O2 Delivery O2 Flow Rate FiO2 01/08/23 03:26 36.7 91 20 140/60 (86) 93 Room Air 01/08/23 00:06 36.7 105 20 142/83 (102) 93 Room Air 01/07/23 19:51 Room Air 01/07/23 19:12 37.2 86 17 146/70 (95) 93 Room Air 01/07/23 16:00 37.2 85 16 139/64 (89) 92 Room Air 01/07/23 11:34 36.5 78 20 154/87 (109) 92 Room Air 01/07/23 09:38 Room Air 01/07/23 08:00 Room Air 01/07/23 07:39 37.3 87 18 150/98 (115) 91 Room Air I & O 01/08/23 07:00 Intake Total 1725 ml Output Total 350 ml Balance 1375 ml RLE--incision clean and dry no calf tenderness neg Jade's s/p RTKA doing well DC home after PT ABIMAEL PEÑA MD Jan 08, 2023 07:00
[2023-01-08 08:00] VITALS: BP 143/73
--- NOTE | 2023-01-08 08:06 | Physical Therapy Daily Note ---
PT Daily Note-Current Subjective Patient states she is ready to go home. Agrees to PT. Pain Numeric Pain Scale: 5-Moderate Pain Location: Right Location Body Site: Knee Pain Description: Heavy Section J - Health Conditions 1. Rarely or not at all 2. Occasionally 3. Frequently 4. Almost constantly 8. Unable to answer Pain Effect on Sleep: 1 Pain Interference with Therapy: 1 Pain Interference w/Day-to-Day: 1 Mental Status Patient Orientation: Normal For Age Transfers SCALE: Activities may be completed with or without assistive devices. 2-Spcbvvfbtf-ffkdzjb completes the activity by him/herself with no assistance from a helper. 5-Set-up or Clean-up Assistance-helper sets up or cleans up; patient completes activity. [place] assists only prior to or following the activity. 4-Supervision or Touching Assistance-helper provides verbal cues and/or touch ing/steadying and/or contact guard assistance as patient completes activity. Assistance may be provided throughout the activity or intermittently. 3-Partial/Moderate Assistance-helper does LESS THAN HALF the effort. [place] lifts, holds or supports trunk or limbs, but provides less than half the effort. 2-Substantial/Maximal Assistance-helper does MORE THAN HALF the effort. [place] lifts or holds trunk or limbs and provides more than half the effort. 9-Ygwdgyeek-fxxpfa does ALL the effort. Patient does none of the effort to complete the activity. Or, the assistance of 2 or more helpers is required for the patient to complete the activity. If activity was not attempted, code reason: 7-Patient Refused. 9-Not Applicable-not attempted and the patient did not perform the activity before the current illness, exacerbation or injury. 10-Not Attempted due to Environmental Limitations-(lack of equipment, weather restraints, etc.). 88-Not Attempted due to Medical Conditions or Safety Concerns. Lying to Sitting/Side of Bed(Q: 6 Sit to Stand (QC): 6 Chair/Nkz-ja-Lybdv Xfer(QC): 6 Weight Bearing Right Lower Extremity: Right Weight Bearing/Tolerated Left Lower Extremity: Left Full Weight Bearing Gait Training Distance: 180' Walk 10 feet (QC): 5 Walk 50 ft with 2 Turns(QC): 5 Walk 150 ft (QC): 5 Gait Assistive Device: FWW slow, steady, step to gait sequence Exercises Seated Therapy Exercises: Long arc quads Seated Reps: 15 Assessment Patient continues to be slightly impulsive with activity and will state she doesn't want to perform exercises. PT educated patient on importance of performing HEP issued at preop 3/day at 15 reps. Patient voices understanding. Patient to dismiss to home with spouse on this date. PT Commercial Airplane Pilot Goals Senior Living Goals PT Commercial Airplane Pilot Goals Time Frame: Feb 13, 2023 Roll Left & Right (QC): 6 Sit to Lying (QC): 6 Lying-Sitting on Side/Bed(QC): 6 Sit to Stand (QC): 6 Chair/Vlq-oc-[place] Xfer(QC): 6 Toilet Transfer (QC): 6 Does the Patient Walk: Yes Walk 10 feet (QC): 6 Walk 50ft with 2 Turns (QC): 4 Walk 150 ft (QC): 4 PT Plan Treatment/Plan Treatment Plan: Discontinue PT Treatment Plan: Bed Mobility, Education, Functional Activity Heather, Functional Strength, Group Therapy, Gait, Safety, Therapeutic Exercise, Transfers Treatment Duration: Feb 13, 2023 Frequency: 11 times per week Estimated Hrs Per Day: .25 hour per day Patient and/or Family Agrees t: Yes Time Time In: 741 Time Out: 754 DATE: Jan 08, 2023 Total Billed Treatment Time: 13 Total Billed Treatment 1 visit FA 13 min HARPER COTE PT Jan 08, 2023 08:06
[2023-01-08] MEDS: ENOXAPARIN INJECTION 30 MG/0.3 ML SYR SC SCH (08:44)
[2023-01-08] MEDS: SENNA W/DOCUSATE (SENOKOT S) TABLET PO SCH (08:44)
[2023-01-08] MEDS: BISOPROLOL 5 MG TAB (ZEBETA) PO SCH (08:45)
[2023-01-08] MEDS: LEVOTHYROXINE 112 MCG (LEVOTHROID) TAB PO SCH (08:45)
[2023-01-08] MEDS: MELOXICAM 7.5 MG (MOBIC) TABLET PO SCH (08:45)
[2023-01-08] MEDS: ASPIRIN E.C. 81 MG (ECOTRIN) TAB PO SCH (08:45)
[2023-01-08] MEDS: ALLOPURINOL 100 MG (ZYLOPRIM) TAB PO SCH (08:45)
[2023-01-08] MEDS: BACLOFEN 10 MG (LIORESAL) TAB PO SCH (08:45)
[2023-01-08] MEDS: PANTOPRAZOLE 40 MG (PROTONIX) TAB PO SCH (08:45)
[2023-01-08] MEDS: HydroCHLOROthiazide CAP/TABLET 12.5 MG TAB PO SCH (08:45)
== END 2023-01-08 09:33 | disposition home health service (06) ==
LOC: SDC 07:22 → EDSTATUS 09:30 → 4TH 11:55 → SDC 01-08 09:33
PROVIDERS: ATTEND Orthopaedic Surgery
DX: M17.11 Unilateral primary osteoarthritis, right knee (principal); I10 Essential (primary) hypertension; E78.00 Pure hypercholesterolemia, unspecified; E03.9 Hypothyroidism, unspecified; G43.909 Migraine, unspecified, not intractable, without status migrainosus; Z86.73 Personal history of transient ischemic attack (TIA), and cerebral infarction without residual deficits; Z87.891 Personal history of nicotine dependence; Z79.890 Hormone replacement therapy; Z79.899 Other long term (current) drug therapy
CPT/HCPCS: 36415; 73560; 85014; 85018; 86850; 86900; 86901; 87081

== ENCOUNTER → 2023-02-15 | Outpatient (RCR) | payer MEDICARE, MEDICAID | END | disposition home or self-care (01) | PROVIDERS: ATTEND Orthopaedic Surgery | DX: Z47.1 Aftercare following joint replacement surgery (principal); I10 Essential (primary) hypertension; Z96.651 Presence of right artificial knee joint ==

== ENCOUNTER 2023-02-22 14:33 | Outpatient (RCR) | payer MEDICARE, MEDICAID | END 2023-03-11 14:18 | disposition home or self-care (01) | PROVIDERS: ATTEND Orthopaedic Surgery | DX: Z47.1 Aftercare following joint replacement surgery (principal); Z96.651 Presence of right artificial knee joint ==

== ENCOUNTER 2023-03-24 05:54 | Outpatient (CLI) | payer MEDICARE, MEDICAID ==
[~2023-03-24] VITALS: Ht 172.7 cm; Wt 88.6 kg
== END 2023-03-24 12:50 | disposition home or self-care (01) ==
LOC: PREOP 05:54
PROVIDERS: ATTEND Specialist
DX: Z01.818 Encounter for other preprocedural examination (principal)

== ENCOUNTER 2023-03-26 07:58 | Day surgery (SDC) | payer MEDICARE, MEDICAID ==
[~2023-03-26] VITALS: Ht 172.7 cm; Wt 88.6 kg
[2023-03-26] MEDS ORDERED: LIDOCAINE PF 1% 2 ML VIAL IR PRN (08:15)
[2023-03-26] MEDS ORDERED: MOXIFLOXACIN OPHTH SOLN 5 MG/ML 0.3 ML SYRINGE OP ONE (08:15)
[2023-03-26] MEDS ORDERED: TIMOLOL 0.5% (CATARACTS) 0.3 ML BTL OU PRN (08:15)
[2023-03-26] MEDS ORDERED: POVIDONE IODINE OPHTH SOLN 5% 30 ML OP ONE (08:15)
[2023-03-26] MEDS: TETRACAINE 0.5% OPHTH SOLN 4 ML BTL (SINGLE DOSE ONLY) OU PRN ×3 (08:35→08:46)
[2023-03-26 08:38] VITALS: BP 171/90
[2023-03-26] MEDS: PHENYLEPHRINE 10% OPHTH SOLN 5 ML BTL OU SCH ×3 (08:41→08:50)
[2023-03-26] MEDS: TROPICAMIDE 1% OPH SOLN (MYDRIACYL) 15 ML BTL OP SCH ×3 (08:41→08:50)
[2023-03-26] MEDS ORDERED: MIDAZOLAM INJ 2 MG/2 ML VIAL ONE (08:55)
--- NOTE | 2023-03-26 09:35 | Ophthalmologist Pre-Op Note ---
Pre-Operative Progress Note H&P Reviewed The H&P was reviewed, patient examined and no changes noted. Date H&P Reviewed: Mar 26, 2023 Time H&P Reviewed: 09:12 Pre-Op Dx Cataract, Left Eye GLENN DAVILA MD Mar 26, 2023 09:35
--- NOTE | 2023-03-26 09:36 | Ophthalmology Operative Report ---
Cataract removal/placement IOL PREOPERATIVE DIAGNOSIS: Cataract Left Eye POSTOPERATIVE DIAGNOSIS: Cataract Left Eye PROCEDURE: Cataract removal and placement of posterior chamber implant, left eye SURGEON: Yvon Davila ANESTHESIA: Topical with sedation COMPLICATIONS: None ESTIMATED BLOOD LOSS: Minimal DESCRIPTION OF PROCEDURE: After proper informed consent was obtained, the patient, a 73 female, was taken to the Operating Room and the left eye was anesthetized with tetracaine. The left eye was then prepped and draped in the usual manner. A wire lid speculum was placed. A paracentesis was made at the left hand position. Preservative free lidocaine was injected into the anterior chamber followed by viscoelastic. A clear corneal incision was made in the temporal position. A capsulorrhexis was preformed and the central nuclear and cortical material were removed. The posterior capsule was polished and an Matheus 22.0 AU00T0 was placed into the capsular bag. The residual viscoelastic was aspirated and balanced saline solution was injected into the anterior chamber. Moxifloxacin was injected into the anterior chamber. The wound was checked and found to be water tight. The patient tolerated the procedure well without complications. YVON DAVILA MD Mar 26, 2023 09:36
[2023-03-26 09:40] VITALS: BP 132/102
--- NOTE | 2023-03-26 12:54 | Anesthesia-General Post-Op ---
MAC Patient Condition Mental Status/LOC: Same as Preop Cardiovascular: Satisfactory Nausea/Vomiting: Absent Respiratory: Satisfactory Pain: Controlled Complications: Absent Post Op Complications Complications None Follow Up Care/Instructions Patient Instructions None needed. Anesthesiology Discharge Order Discharge Order Patient is doing well, no complaints, stable vital signs, no apparent adverse anesthesia problems. No complications reported per nursing. LEFTY ZHAO CRNA Mar 26, 2023 12:54
== END 2023-03-26 09:41 | disposition home or self-care (01) ==
LOC: SDC 07:58
PROVIDERS: ATTEND Specialist
DX: H25.9 Unspecified age-related cataract (principal); Z87.891 Personal history of nicotine dependence

== ENCOUNTER 2023-03-30 10:11 | Outpatient (CLI) | payer MEDICARE, MEDICAID | END 2023-03-30 12:37 | disposition home or self-care (01) | LOC: PREOP 10:11 | PROVIDERS: ATTEND Specialist | DX: Z01.818 Encounter for other preprocedural examination (principal) ==